=== PATIENT | male | born 1955 | race Caucasian/White ===

== ENCOUNTER 2018-11-26 13:12 | Emergency (ER) | payer OTHER ==
[2018-11-26 13:21] VITALS: BP 140/100
--- NOTE | 2018-11-26 14:05 | UC ---
Back Pain HPI - HPI Summary HPI Summary: Onset 2 weeks ago of left mid/low back pain. Started after shoveling snow. Since then has had persistent pain in the area. Does not radiate to the groin. No urinary symptoms. Pain has improved but given it has not entirely resolved he was worried about his kidney so came in for evaluation. No history of kidney stones. No nausea. No fever. - History of Current Complaint Chief Complaint: UCGU Stated Complaint: LOWER BACK PAIN Time Seen by Provider: 11/26/18 13:49 Hx Obtained From: Patient Onset/Duration: Sudden Onset, Lasting Weeks, Still Present Timing: Constant Severity Initially: Moderate Severity Currently: Moderate Pain Intensity: 10 Pain Scale Used: 0-10 Numeric Back Pain: Is Discrete @ - LEFT FLANK Aggravating Factor(s): Movement Alleviating Factor(s): Rest, OTC Meds Associated Signs And Symptoms: Positive: Flank Pain. Negative: Swelling, Redness, Bruising, Weakness, Numbness, Tingling, Abdominal Pain, Bladder Incontinence, Bowel Incontinence - Allergies/Home Medications Allergies/Adverse Reactions: Allergies Allergy/AdvReac Type Severity Reaction Status Date / Time No Known Allergies Allergy Verified 11/26/18 13:22 PMH/Surg Hx/FS Hx/Imm Hx Other Cancer History: MESOTHELIOMA - Surgical History Surgical History: None - Family History Known Family History: Positive: Non-Contributory - Social History Alcohol Use: Occasionally Substance Use Type: None Smoking Status (MU): Never Smoked Tobacco Review of Systems All Other Systems Reviewed And Are Negative: Yes Constitutional: Positive: Negative Respiratory: Positive: Negative Cardiovascular: Positive: Negative Gastrointestinal: Positive: Negative Genitourinary: Negative: Dysuria, Hematuria, Frequency, Urgency Musculoskeletal: Positive: Other: - LEFT FLANK PAIN Physical Exam Triage Information Reviewed: Yes Appearance: Well-Appearing, No Pain Distress, Well-Nourished Vital Signs: Initial Vital Signs Temp 97.9 F 11/26/18 13:18 Pulse 86 11/26/18 13:18 Resp 18 11/26/18 13:18 BP 140/100 11/26/18 13:18 Pulse Ox 100 11/26/18 13:18 Laboratory Tests 11/26/18 13:28 POC Urine Color Yellow POC Urine Clarity Clear POC Urine pH 7.0 POC Ur Specif [place] 1.010 POC Urine Protein Negative POC Ur Glucose (UA) Negative POC Urine Ketones Negative POC Urine Blood Negative POC Urine Nitrite Negative POC Urine Bilirubin Negative POC Urine Urobilinogen 0.2 POC U Leukocyte Esteras Negative Vital Signs Reviewed: Yes Eyes: Positive: Conjunctiva Clear ENT: Positive: Hearing grossly normal Neck: Positive: Supple Respiratory: Positive: No respiratory distress, No accessory muscle use Cardiovascular: Positive: Pulses Normal Abdomen Description: Positive: Soft. Negative: CVA Tenderness (R), CVA Tenderness (L), Distended, Guarding Musculoskeletal: Positive: No Edema Neurological: Positive: Alert Psychological: Positive: Age Appropriate Behavior Skin: Negative: Rashes Back Pain Course/Dx - Course Course Of Treatment: URINE DIP TODAY COMPLETELY NORMAL. PATIENT'S PRESENTATION AND HISTORY ARE MOST CONSISTENT WITH AN ACUTE MUSCLE STRAIN IN HIS BACK. HAVE ADVISED CONTINUED OTC MEDS NEEDED FOR DISCOMFORT. WE'LL GIVE FLEXERIL WELL. REST, STRETCH, SLOW RANGE OF MOTION EXERCISES. FOLLOW-UP IF NOT IMPROVING EXPECTED. - Differential Dx/Diagnosis Provider Diagnosis: Muscle strain Discharge - Sign-Out/Discharge Documenting (check all that apply): Patient Departure All imaging exams completed and their final reports reviewed: No Studies - Discharge Plan Condition: Stable Disposition: HOME Prescriptions: Cyclobenzaprine TAB* [Flexeril TAB*] 10 mg PO BID PRN #30 tab PRN Reason: Pain Patient Education Materials: Muscle Strain (ED) Referrals: Jack Palacios MD [Primary Care Provider] - 2 Weeks Additional Instructions: YOUR SYMPTOMS ARE MOST IN LINE WITH AN ACUTE MUSCLE STRAIN OF YOUR MID/LOW BACK. URINE TEST TODAY COMPLETELY NORMAL. OTC MEDS NEEDED FOR DISCOMFORT. FLEXERIL BEFORE BED. BE SURE TO GO THROUGH SLOW RANGE OF MOTION AND STRETCHING EXERCISES DAILY YOU ARE ABLE TO PREVENT STIFFENING UP AND MAKING THE DISCOMFORT WORSE. GO TO THE ER WITHOUT FAIL IF YOU DEVELOP WORSENING PAIN, FEVER, BLOOD IN THE URINE, NAUSEA OR ANY OTHER CONCERNING SYMPTOMS. - Billing Disposition and Condition Condition: STABLE Disposition: Home
== END 2018-11-26 14:24 | disposition home or self-care (01) ==
LOC: UCEAST 13:12
DX: S39.012A Strain of muscle, fascia and tendon of lower back, initial encounter (principal); X50.9XXA Other and unspecified overexertion or strenuous movements or postures, initial encounter; Y92.9 Unspecified place or not applicable
CPT/HCPCS: 81003; 99212; G0463